=== PATIENT | male | born 1970 | race African-American/Black ===

== ENCOUNTER 2022-11-28 15:21 | Emergency (ER) | payer OTHER, SELFPAY ==
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
[2022-11-28 15:34] VITALS: BP 132/105; PULSE 106; RESP 18; TEMP 36.4; O2SAT 97
== END 2022-11-28 15:35 | disposition short-term general hospital (02) ==
PROVIDERS: Emergency Provider Nurse Practitioner
DX: R44.0 Auditory hallucinations (principal); R44.1 Visual hallucinations; R44.2 Other hallucinations
CPT/HCPCS: 99204; G0463

== ENCOUNTER 2022-11-28 15:57 | Emergency (ER) | payer OTHER, SELFPAY ==
[2022-11-28 16:06] VITALS: BP 170/108; PULSE 90; RESP 20; TEMP 36.6; O2SAT 97
[2022-11-28 16:18] LABS: Basophils Absolute Auto 0.1 K/mm3 (0.0-0.1); Basophils Percent Auto 0.5 % (0.2-1.2); Eosinophils Absolute Auto 0.1 K/mm3 (0-0.3); Hematocrit 50.4 % (42.0-52.0); Hemoglobin 16.5 g/dL (14.0-18.0); Immature Granulocyte Absolute 0.04 K/mm3 (0.00-0.031); Immature Granulocyte Percent A 0.4 % (0-0.5); Lymphocytes Absolute Auto 2.23 K/mm3 (0.9-3.2); Lymphocytes Percent Auto 22.3 % (18.3-44.2); Mean Corpuscular HGB Conc 32.7 g/dl (32-36); Mean Corpuscular Hemoglobin 28.3 pg (26-34); Mean Corpuscular Volume 86.4 fl (80-100); Mean Platelet Volume 9.3 fl (7.4-10.4); Monocytes Absolute Auto 0.7 K/mm3 (0.1-0.6); Monocytes Percent Auto 7.4 % (2.6-8.5); Neutrophils Absolute Auto 6.8 K/mm3 (1.3-6.7); Neutrophils Percent Auto 68.4 % (45.5-73.1); Platelet Count Result 251 k/mm3 (150-375); Red Blood Count 5.83 M/mm3 (4.6-6.20); Red Cell Distribution Width 13.2 % (11.5-14.5)
[2022-11-28 16:29] LABS: Alanine Aminotransferase 29 U/L (6-50); Albumin Level 4.7 g/dL (3.5-5.1); Alkaline Phosphatase 125 U/L (38-126); Anion Gap 8 mmol/L (8-16); Aspartate Amino Transferase 26 U/L (17-59); Bilirubin,Total 0.6 mg/dL (0.2-1.3); Blood Urea Nitrogen 15 mg/dL (9-20); Calcium 9.2 mg/dL (8.4-10.2); Carbon Dioxide 22 mmol/L (22-30); Chloride 106 mmol/L (98-107); Estimated CRCL calculation 103 ml/min; Estimated Glomerular Filt Rate > 60; Ethanol < 10 mg/dL (<10); Glucose 92 mg/dL (65-110); Potassium 4.3 mmol/L (3.4-5.0); Sodium 136 mmol/L (137-145)
[2022-11-28 16:59] LABS: Thyroid Stimulating Hormone 0.813 uIU/mL (0.465-4.680)
[2022-11-28 17:03] LABS: Appearance Urine Clear (Clear); Bilirubin Urine Negative (Negative); Blood Urine Trace-lysed (Negative); Color Urine Yellow (Yellow); Glucose Urine UA Negative (Negative); Ketones Urine Trace mg/dL (Negative); Leukocyte Esterase Ur Negative LEU/UL (Negative); Nitrate Urine Negative (Negative); Protein Urine Negative (Negative); Specific Grav Ur >= 1.030 (1.001-1.035); pH Urine 5.5 (5.0-9.0)
[2022-11-28 17:14] LABS: Bacteria Urine Trace /hpf; Mucus Urine Rare /lpf; Squamous Epithelial Cell Urine Rare /hpf (Few); WBC Urine 0-3 /hpf
[2022-11-28 17:15] LABS: Add Urine Microscopic? YES
[2022-11-28 17:21] LABS: Amphetamine Screen Urine Negative (Negative); Barbiturate Screen Urine Negative (Negative); Benzodiazepines Screen Urine Negative (Negative); Cannabinoid Screen Urine Negative (Negative); Cocaine Screen Urine Positive (Negative); Methadone Screen Urine Negative (Negative); Opiate Screen Urine Negative (Negative); Phencyclidine Screen Urine Negative (Negative)
--- NOTE | 2022-11-28 17:58 | ED.GENADULT ---
HPI - General Adult General Chief complaint: Psychiatric Symptoms <Zaria Zamora MD - Last Filed: 11/29/22 17:22> Stated complaint: hearing voices <Zaria Zamora MD - Last Filed: 11/29/22 17:22> Time Seen by Provider: 11/28/22 16:11 <Zaria Zamora MD - Last Filed: 11/29/22 17:22> History of Present Illness HPI narrative: Patient is a 52-year-old male with a history of polysubstance use disorder presenting for psych evaluation. Patient states that he has been having episodes over the last several months where he feels like computers are controlling him. Patient states that people can type things into his phone and then whatever they typed in will be on top of him. Patient states that this has been happening for the last 2 months and has been increasing in frequency. He states that whenever these episodes happen, he knows that they are not real. He denies suicidal or homicidal ideation. States that he was doing cocaine several days ago but he has not in the last day. States he has been working on decreasing his cocaine use. He denies any physical complaints or symptoms. Currently, patient states that he feels much better. <Zaria Zamora MD - Last Filed: 11/29/22 17:22> Related Data Allergies/adverse reactions: Allergies Allergy/AdvReac Type Severity Reaction Status Date / Time No Known Allergies Allergy Verified 11/28/22 16:21 <Zaria Zamora MD - Last Filed: 11/29/22 17:22> Review of Systems Review of Systems: All systems reviewed & are unremarkable except as noted in HPI and below <Zaria Zamora MD - Last Filed: 11/29/22 17:22> PMFSH Social History Social History: Social History Substance use type: crack/cocaine <Zaria Zamora MD - Last Filed: 11/29/22 17:22> Exam Narrative: GENERAL: Well-appearing, well-nourished, and in no acute distress. HEAD: Normocephalic, atraumatic. EYES: PERRLA and EOMI. ENT: Nares clear, no rhinorrhea or epistaxis. Mucous membranes dry NECK: Supple. CHEST: Clear to auscultation. No respiratory distress. HEART: Regular rate and rhythm. No murmur heard. Normal peripheral pulses. ABDOMEN: Soft, nontender, nondistended, normal active bowel sounds. EXTREMITIES: Normal range of motion. No edema. SKIN: Warm, dry, no rash. NEURO: No focal deficits. Alert and oriented x3. PSYCH: Normal mood and affect. <Zaria Zamora MD - Last Filed: 11/29/22 17:22> Course Vital Signs Vital signs: Vital Signs Temperature 97.8 F 11/28/22 16:06 Pulse Rate 90 11/28/22 16:06 Respiratory Rate 20 11/28/22 16:06 Blood Pressure 170/108 H 11/28/22 16:06 Pulse Oximetry 97 11/28/22 16:06 Oxygen Delivery Room Air 11/28/22 16:06 Temperature 97.9 F 11/28/22 20:35 Pulse Rate 91 11/28/22 20:35 Respiratory Rate 15 11/28/22 20:35 Blood Pressure 148/76 H 11/28/22 20:35 Pulse Oximetry 99 11/28/22 20:35 Oxygen Delivery Room Air 11/28/22 16:06 <Zaria Zamora MD - Last Filed: 11/29/22 17:22> Vital Signs Temperature 97.8 F 11/28/22 16:06 Pulse Rate 90 11/28/22 16:06 Respiratory Rate 20 11/28/22 16:06 Blood Pressure 170/108 H 11/28/22 16:06 Pulse Oximetry 97 11/28/22 16:06 Oxygen Delivery Room Air 11/28/22 16:06 Temperature 97.9 F 11/28/22 20:35 Pulse Rate 91 11/28/22 20:35 Respiratory Rate 15 11/28/22 20:35 Blood Pressure 148/76 H 11/28/22 20:35 Pulse Oximetry 99 11/28/22 20:35 Oxygen Delivery Room Air 11/28/22 16:06 <Bobo Gorman MD - Last Filed: 11/28/22 20:22> Medical Decision Making MDM Narrative Medical decision making narrative: Patient is a 52-year-old male presenting for psych evaluation. Patient is hypertensive, otherwise vitals are within normal limits. Exam is remarkable for the above. Patient states that he currently feels fine. He was slee
[2022-11-28 18:19] LABS: Influenza A QL RT-PCR Negative (Negative); Influenza B QL RT-PCR Negative (Negative); SARS-CoV-2 RNA PCR Negative
--- NOTE | 2022-11-28 18:50 | PC.NURSE ---
Contacted Crisis at this time. States will send s iron worker to evaluated patient.
[2022-11-28 20:35] VITALS: BP 148/76; PULSE 91; RESP 15; TEMP 36.6; O2SAT 99
== END 2022-11-28 20:37 | disposition home or self-care (01) ==
PROVIDERS: Emergency Medicine; Emergency Provider Emergency Medicine
DX: R44.2 Other hallucinations (principal); F14.90 Cocaine use, unspecified, uncomplicated; Z20.822 Contact with and (suspected) exposure to COVID-19; R03.0 Elevated blood-pressure reading, without diagnosis of hypertension
CPT/HCPCS: 36415; 80053; 80307; 81001; 84443; 85025; 87636; 99284